=== PATIENT | female | born 1980 | race Caucasian/White ===

== ENCOUNTER 2021-10-24 11:35 | Outpatient (CLI) | payer OTHER, SELFPAY ==
--- NOTE | ~2021-10-24 | XR_ITS ---
EXAMINATION: XR ankle LT min 3V EXAM DATE: 10/24/2021 11:52 INDICATION: Left Ankle Pain,?Screw Removal No New Injury TECHNIQUE: Left ankle frontal, lateral and oblique projections obtained and reviewed. There is no pr ior study for comparison. FINDINGS: The left ankle mortise appears intact. There are 2 screws bridging a healed medial malle olar fracture. No lucency surrounding the screws or fracture of them. Mild to moderate left ankle ost eoarthritis probably posttraumatic etiology. There are no acute fractures identified. The ankle morti se appears intact. The soft tissue is unremarkable. IMPRESSION: 1. 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 2. Intact medial malleolar fixation screws. Reviewed, dictated and finalized at location A.
== END 2021-10-24 11:36 | disposition home or self-care (01) ==
LOC: CHSIMG 11:37
PROVIDERS: PCP Family Medicine; Visit Provider Physician Assistant
DX: M25.572 Pain in left ankle and joints of left foot (principal)
CPT/HCPCS: 73610

== ENCOUNTER 2025-07-07 11:46 | Outpatient (CLI) | payer OTHER, SELFPAY ==
--- NOTE | ~2025-07-07 | XR_ITS ---
EXAMINATION: XR ankle LT min 3V, 07/07/2025 12:00 UNEMPLOYMENT SPECIALIST HISTORY: CHRONIC PAIN OF LEFT ANKLE COMPARISON: No comparisons available. Findings: Fixation of the medial malleolus, the hardware is intact, no acute fracture. Moderate degenerative changes. Soft tissues unremarkable. Impression: No acute fracture or malalignment. Reviewed, dictated and finalized at location P. PLOYMENT SPECIALIST Impression: No acute fracture or malalignment.
--- OUTSIDE RECORDS SUMMARY | 2025-07-07 12:00 | XMS_ITS | Clinical Summary ---
Author Organization [facility] Address [address] [place] [address] Care Team Providers Care Retail Aide Name Role Phone Leonard Berumen MD Primary Care Provider [phone] Source Comments [facility],non-owned Affiliates and Associated Physician Practices is amultiple site organization consisting of ambulatory clinics and hospital sitesin [place], [place], [place] and [place]. This disclosure is being madepursuant to the Care Everywhere program and may not contain all information available regarding this patient. Last updated 18.[facility] Allergies Active Allergy Reactions Criticality Noted Date Comments Latex Itching,Other,Rash Medium 08/04/2015 Tingling around lips when blowing up balloons, Tingling around lips when blowing up balloons, Tingling around lips when blowing up balloons Active Problems Problem Noted Date Diagnosed Date Multiple closed fractures of pelvis with stable disruption of pelvic [place] 08/23/2015 Closed nondisplaced fracture of medial malleolus of left tibia with routine healing 08/23/2015 Injury 08/03/2015 Immunizations Immunization Administration Dates Next Due TDAP (7yrs+) 08/03/2015 Social History Tobacco Use Types Packs/Day Years Used Date Smoking Tobacco: Every Day Cigarettes Alcohol Use Standard Drinks/Week Comments Yes 12.5 (1 standard drink = 0.6 oz pure alcohol) Comments Unknown Sex and Gender Information Value Date Recorded Sex Assigned at Not on file Legal Sex Female 6:01 PM [employer]CT IN[employer] Gender Identity Not on file Sexual Orientation Not on file Last Filed Vital Signs Vital Sign Reading Time Taken Comments Blood Pressure 117/72 08/08/2015 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 Pulse 75 08/08/2015 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 Temperature 36.6 C (97.9 F) 08/08/2015 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 Respiratory Rate 16 08/08/2015 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 Oxygen Saturation 97% 08/08/2015 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 Inhaled Oxygen Concentration - - Weight 70.3 kg (155 lb) 08/23/2015 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 Height 165.1 cm (5' 5) 08/23/2015 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 Body Mass Index 25.79 08/23/2015 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 Plan of Treatment Health Maintenance Due Date Last Done Comments LIPID TESTING 1980 MAMMOGRAM 1980 HIV SCREENING 1995 HEPATITIS C SCREENING 08/22/1998 HEPATITIS B VACCINE (1 of 3 - 19+ 3-dose series) 1999 HPV VACCINE (1 - 3-dose SCDM series) 2007 DEPRESSION SCREENING 07/20/2024 COVID-19 VACCINE ( - 2024-2 6 season) 2025 INFLUENZA VACCINE (#1) 2025 DTAP/TDAP/TD VACCINES (2 - T d or Tdap) 08/03/2025 08/03/2015 ZOSTER VACCINE (1 of 2) 2030 HIB VACCINE Aged Out No longer eligi ble based on patient's age to complete this topic MENINGOCOCCAL (Group B) VACC INE SHARED DECISION-MAKING Aged Out No longer eligibl e based on patient's age to complete this topic MENINGOCOCCAL GROUPS A/C/Y/W VACCINE Aged Out No longer eligible b ased on patient's age to complete this topic PNEUMOCOCCAL VACCINE Aged Out No long er eligible based on patient's age to complete this topic Care Teams Retail Aide Relationship Specialty Start Date End Date Leonard Berumen MD [address] [place] [id number] PCP - General 08/23/15
[2025-07-07 12:13] LABS: Hematocrit 49.1 % (35.0-49.0); Hemoglobin 17.5 g/dL (12.0-15.0); Immature Granulocyte Percent A 0.4 % (0.0-0.0); Lymphocytes Absolute Auto 2.17 K/mm3 (1.10-4.50); Mean Corpuscular HGB Conc 35.6 g/dL (32-36); Mean Corpuscular Hemoglobin 33.3 pg (27.0-31.0); Mean Corpuscular Volume 93.5 fL (78.0-102.0); Nucleated Red Blood Cells Absolute Auto 0.00 K/mm3 (0.00-0.00); Nucleated Red Blood Cells Perc 0.0 % (0-0.0); Platelet Count Result 347 K/mm3 (150-420); Red Blood Count 5.25 M/mm3 (4.20-5.40); White Blood Count 9.9 K/mm3 (4.8-10.8)
[2025-07-07 12:59] LABS: Alanine Aminotransferase 18 U/L (6-35); Albumin Level 4.9 g/dL (3.5-5.1); Alkaline Phosphatase 107 U/L (38-126); Anion Gap 11 mmol/L (4-12); Aspartate Amino Transferase 19 U/L (14-36); Bilirubin,Total 1.0 mg/dL (0.2-1.3); Blood Urea Nitrogen 7 mg/dL (7-17); Calcium 9.8 mg/dL (8.4-10.2); Carbon Dioxide 19 mmol/L (22-30); Chloride 107 mmol/L (98-107); Cholesterol 269 mg/dL (0-200); Estimated Glomerular Filt Rate > 60; Glucose 107 mg/dL (65-110); HDL Direct 83 mg/dL; Osmolality Calculated 282 mOsm/kg (285-295); Potassium 3.9 mmol/L (3.4-5.0); Sodium 137 mmol/L (137-145); Total Protein 7.5 g/dL (6.3-8.2); Triglycerides 248 mg/dL (<150)
== END 2025-07-07 11:47 | disposition home or self-care (01) ==
PROVIDERS: PCP Physician Assistant; Visit Provider Physician Assistant
DX: E78.5 Hyperlipidemia, unspecified (principal); I10 Essential (primary) hypertension; M25.572 Pain in left ankle and joints of left foot
CPT/HCPCS: 36415; 73610; 80053; 80061; 85025